=== PATIENT | female | born 2005 | race Hispanic/Latino ===

== ENCOUNTER 2023-12-17 15:19 | Emergency (ER) | payer OTHER, SELFPAY ==
--- NOTE | 2023-12-17 16:55 | ER ---
Nurse's Notes [facility] Name: Sofy Edwards Age: 18 yrs Sex: Female : 2005 Arrival Date: 12/17/2023 Time: 15:19 Bed 11 Private MD: Diagnosis: Acute tonsillitis, unspecified Presentation: 12/16 15:33 Chief complaint: Patient states: sore throat x 1 week ago. Coronavirus screen: At this aa5 time, the client does not indicate any symptoms associated with coronavirus-19. Ebola Screen: Patient denies travel to an Ebola-affected area in the 21 days before illness onset. Initial Sepsis Screen: Does the patient meet any 2 criteria? No. Patient's initial sepsis screen is negative. Does the patient have a suspected source of infection? No. Patient's initial sepsis screen is negative. Risk Assessment: Do you want to hurt yourself or someone else? Patient reports no desire to harm self or others. 15:33 Method Of Arrival: Ambulatory aa5 15:33 Acuity: ALMA 4 aa5 Historical: - Allergies: 15:32 No Known Allergies; aa5 - PMHx: 15:32 None; aa5 - PSHx: 15:32 None; aa5 - Immunization history:: Adult Immunizations unknown. - Infectious Disease History:: Denies. - Social history:: Smoking status: Reported history of juuling and/or vaping. Screenin:11 Abuse screen: Denies threats or abuse. Denies injuries from another. Nutritional ss screening: No deficits noted. Tuberculosis screening: Never had TB. Assessment: 17:11 General: Appears in no apparent distress. comfortable, Behavior is calm, cooperative. ss Neuro: Level of Consciousness is awake, alert, obeys commands, Oriented to person, place, time, situation. Respiratory: Airway is patent Respiratory effort is even, unlabored. Derm: Skin is intact, is healthy with good turgor, Skin is pink, warm \T\ dry. normal. Vital Signs: 15:33 Pulse 70; Resp 18 S; Temp 98.2(O); Pulse Ox 98% on R/A; Weight 90.72 kg (R); Height 5 aa5 ft. 4 in. (R); 15:33 Body Mass Index 34.33 (90.72 kg, 162.56 cm) aa5 ED Course: 15:24 Patient arrived in ED. ra3 15:32 Arm band placed on. aa5 15:33 Triage completed. aa5 15:49 Damien Humphreys FNP-C is [facility]. dr5 15:49 Jassi Chacon MD is Attending Physician. dr5 17:11 No provider procedures requiring assistance completed. Patient did not have IV access ss during this emergency room visit. Administered Medications: No medications were administered Medication: 17:11 VIS not applicable for this client. ss Outcome: 16:55 Discharge ordered by . dr5 17:11 Discharged to home ambulatory, ss 17:11 Condition: good 17:11 Discharge instructions given to patient, family, Instructed on discharge instructions, follow up and referral plans. medication usage, Demonstrated understanding of instructions, follow-up care, medications, 17:13 Patient left the ED. ss Signatures: Susanne Rodríguez, RN RN aa5 Loreta Gooden RN RN ss Graciela Donnelly ra3 Damien Humphreys FNP-C DEPLOYMENT SPECIALIST-Cdr5
--- NOTE | 2023-12-17 16:55 | EDPHYS ---
Physician Documentation [facility] Name: Sofy Edwards Age: 18 yrs Sex: Female : 2005 Arrival Date: 12/17/2023 Time: 15:19 Bed 11 Private MD: ED Physician Jassi Chacon HPI: 12/16 18:51 This 18 yrs old Female presents to ER via Ambulatory with complaints of Sore dr5 Throat. 18:52 This 18 yrs old Female presents to ER via Ambulatory with complaints of Sore dr5 Throat. 18:52 The patient presents with sore throat. The patient describes throat pain as burning, dr5 raw. Pt is a 18 year old with strep exposure, sore throat, exudate, and subjective fevers at home.. Historical: - Allergies: 15:32 No Known Allergies; aa5 - PMHx: 15:32 None; aa5 - PSHx: 15:32 None; aa5 - Immunization history:: Adult Immunizations unknown. - Infectious Disease History:: Denies. - Social history:: Smoking status: Reported history of juuling and/or vaping. ROS: 18:52 Constitutional: as per hpi dr5 Exam: 18:52 Constitutional: This is a well developed, well nourished patient who is awake, alert, dr5 and in no acute distress. Head/Face: Normocephalic, atraumatic. Neck: Trachea midline, no thyromegaly or masses palpated, and no cervical lymphadenopathy. Supple, full range of motion without nuchal rigidity, or vertebral point tenderness. No Meningismus. Cardiovascular: Regular rate and rhythm with a normal S1 and S2. Normal PMI, no JVD. No pulse deficits. Respiratory: Lungs have equal breath sounds bilaterally, clear to auscultation. No rales, rhonchi or wheezes noted. No increased work of breathing, no retractions or nasal flaring. Abdomen/GI: Soft, non-tender, non-distended 18:52 ENT: External ear(s): are unremarkable, Ear canal(s): are normal, TM's: are normal, Posterior pharynx: swelling, erythema, exudate, that is moderate, moderate to right tonsil, Vital Signs: 15:33 Pulse 70; Resp 18 S; Temp 98.2(O); Pulse Ox 98% on R/A; Weight 90.72 kg (R); Height 5 aa5 ft. 4 in. (R); 15:33 Body Mass Index 34.33 (90.72 kg, 162.56 cm) aa5 MDM: 15:49 Medical Screening Exam initiated dr5 18:52 Differential diagnosis: Allergic rhinitis, mo-esquivel virus, mononucleosis, dr5 peritonsillar abscess pharyngitis, tonsillitis, Strep Throat. Data reviewed: vital signs, nurses notes. Consideration of Admission/Observation Escalation of care including admission/observation considered. Considered admission if patient had FOAM CHARGER for IV abx vs I\T\D. Care significantly affected by the following Social Determinants of Health: Poor access to healthcare and/or lack of insurance, Poor access to transportation. Counseling: I had a detailed discussion with the patient and/or guardian regarding the historical points, exam findings, and any diagnostic results supporting the discharge/admit diagnosis, the need for outpatient follow up, for definitive care, a family practitioner, to return to the emergency department if symptoms worsen or persist or if there are any questions or concerns that arise at home. ED course: Strep swab ordered and sent to lab. Amoxicillin prescribed. Recommended throwing toothbrush away in 2-3 days. Alternate Tylenol / Motrin for pain. . Administered Medications: No medications were administered Disposition Summary: 12/17/23 16:55 Discharge Ordered Notes: Location: Home dr5 Condition: Stable dr5 Diagnosis - Acute tonsillitis, unspecified dr5 Followup: dr5 - With: Emergency Department - When: As needed - Reason: Worsening of condition Followup: dr5 - With: Private Physician - When: 1 - 2 days - Reason: Recheck today's complaints, Continuance of care, Re-evaluation by your physician Discharge Instructions: - Discharge Summary Sheet dr5 - Tonsillitis dr5 Forms: - Medication Reconciliation Form dr5 - Antibiotic Education dr5 - Patient Portal Instructions dr5 - Leadership Thank You Letter dr5 Prescriptions: - Amoxicillin 500 mg Oral capsule - take 1 capsule ORAL route 2 times per day for 10 days; 20 tablet; Refills: 0, dr5 Product Selection Permitted Signatures: Dispatcher [employer] Susanne Meza RN RN aa5 Damien Humphreys, TEENA-C POSTAL SERVICE CLERK-Cdr5
[2023-12-18 05:13] VITALS: TEMP 98.2; O2SAT 98
== END 2023-12-17 17:13 | disposition home or self-care (01) ==
LOC: ER 15:19
DX: J03.90 Acute tonsillitis, unspecified (principal)
CPT/HCPCS: 99282

== ENCOUNTER 2024-06-09 15:53 | Emergency (ER) | payer OTHER, SELFPAY ==
--- NOTE | 2024-06-09 16:17 | ER ---
Nurse's Notes [facility] Name: Sofy Edwards Age: 19 yrs Sex: Female : 2005 Arrival Date: 06/09/2024 Time: 15:53 Bed DX3 Private MD: Diagnosis: Otitis media, unspecified, right ear Presentation: 06/09 16:03 Chief complaint: Patient states: pain to right ear lobe. Denies injury. Coronavirus ld1 screen: At this time, the client does not indicate any symptoms associated with coronavirus-19. Ebola Screen: No symptoms or risks identified at this time. Initial Sepsis Screen: Does the patient meet any 2 criteria? No. Patient's initial sepsis screen is negative. Does the patient have a suspected source of infection? No. Patient's initial sepsis screen is negative. Risk Assessment: Do you want to hurt yourself or someone else? Patient reports no desire to harm self or others. Onset of symptoms was June 09, 2024 at 16:03. 16:03 Method Of Arrival: Ambulatory ld1 16:03 Acuity: ALMA 4 ld1 Triage Assessment: 16:03 General: Appears in no apparent distress. comfortable, Behavior is calm, cooperative, ld1 appropriate for age. Pain: Complains of pain in right ear Pain does not radiate. Pain currently is 6 out of 10 on a pain scale. Quality of pain is described as throbbing, Pain began suddenly, Is continuous. EENT: Reports pain in right ear. Neuro: Level of Consciousness is awake, alert, obeys commands, Oriented to person, place, time, situation. Cardiovascular: Capillary refill < 3 seconds Patient's skin is warm and dry. Respiratory: Airway is patent Respiratory effort is even, unlabored. GI: Abdomen is round non-distended. : No signs and/or symptoms were reported regarding the genitourinary system. Derm: No signs and/or symptoms reported regarding the dermatologic system. Musculoskeletal: No signs and/or symptoms reported regarding the musculoskeletal system. Historical: - Allergies: 16:03 No Known Allergies; ld1 - Home Meds: 16:03 None [Active]; ld1 - PMHx: 16:03 None; ld1 - PSHx: 16:03 None; ld1 - Immunization history:: Adult Immunizations up to date. - Infectious Disease History:: Denies. - Social history:: Smoking status: Patient denies any tobacco usage or history of. Vital Signs: 16:03 BP 137 / 82; Pulse 84; Resp 18; Temp 97.5(TE); Pulse Ox 97% on R/A; Weight 92.99 kg; ld1 Height 5 ft. 4 in. ; Pain 0/10; 16:03 Body Mass Index 35.19 (92.99 kg, 162.56 cm) ld1 16:03 Pain Scale: Adult ld1 ED Course: 15:57 Patient arrived in ED. al6 15:59 Emily Reynaga [facility]-C [facility]. sb4 15:59 Jassi Chacon MD is Attending Physician. sb4 16:03 Triage completed. ld1 16:03 Arm band placed on right wrist. ld1 Administered Medications: No medications were administered Outcome: 16:16 Discharge ordered by . sb4 16:21 Patient left the ED. Signatures: Malorie Hall RN RN Kylie Clark RN RN ld1 Emily Reynaga PA-C PA-C sb4 Marquita Kearns al6
--- NOTE | 2024-06-09 16:17 | EDPHYS ---
Physician Documentation [facility] Name: Sofy Edwards Age: 19 yrs Sex: Female : 2005 Arrival Date: 06/09/2024 Time: 15:53 Bed DX3 Private MD: ED Physician Jassi Chacon HPI: 06/09 16:57 This 19 yrs old Female presents to ER via Ambulatory with complaints of Ear sb4 Pain. 16:57 The patient presents with pain, that is acute. The complaints affect the right ear. sb4 Onset: The symptoms/episode began/occurred 2 day(s) ago. Patient reports pain in her right ear for a few days now. She states that she has been a little sick the past week with a stuffy nose. Additionally, reports pain in her right earlobe. She does have gauges there and thought that may be an issue. Reports a history of ear infections as a child, but not as an adult. Denies any fever. Historical: - Allergies: 16:03 No Known Allergies; ld1 - Home Meds: 16:03 None [Active]; ld1 - PMHx: 16:03 None; ld1 - PSHx: 16:03 None; ld1 - Immunization history:: Adult Immunizations up to date. - Infectious Disease History:: Denies. - Social history:: Smoking status: Patient denies any tobacco usage or history of. ROS: 16:57 Constitutional: Negative for fever, chills, and weight loss, sb4 16:57 ENT: Positive for ear pain, 16:57 All other systems are negative, Exam: 16:57 Constitutional: This is a well developed, well nourished patient who is awake, alert, sb4 and in no acute distress. Head/Face: Normocephalic, atraumatic. Eyes: Extra-ocular motions intact. Periorbital areas with no swelling, redness, or edema. Respiratory: No increased work of breathing, no retractions or nasal flaring. 16:57 ENT: External ear(s): erythema, that is moderate, on the right ear lobe, TM's: decreased mobility, on the right, erythema, that is moderate, on the right, Examination of the other ear shows no obvious abnormality, Vital Signs: 16:03 BP 137 / 82; Pulse 84; Resp 18; Temp 97.5(TE); Pulse Ox 97% on R/A; Weight 92.99 kg; ld1 Height 5 ft. 4 in. ; Pain 0/10; 16:03 Body Mass Index 35.19 (92.99 kg, 162.56 cm) ld1 16:03 Pain Scale: Adult ld1 MDM: 16:11 Medical Screening Exam initiated sb4 16:57 Differential diagnosis: otitis media, otitis externa, foreign body, acute otalgia, sb4 cerumen impaction. Data reviewed: vital signs, nurses notes, and as a result, I will discharge patient. Counseling: I had a detailed discussion with the patient and/or guardian regarding the historical points, exam findings, and any diagnostic results supporting the discharge/admit diagnosis, the need for outpatient follow up, for definitive care, to return to the emergency department if symptoms worsen or persist or if there are any questions or concerns that arise at home. Administered Medications: No medications were administered Disposition: 06/10 12:57 Co-signature as Attending Physician, Jassi Chacon MD I agree with the assessment and maria d plan of care. Disposition Summary: 06/09/24 16:16 Discharge Ordered Notes: Location: Home sb4 Problem: new sb4 Symptoms: are unchanged sb4 Condition: Stable sb4 Diagnosis - Otitis media, unspecified, right ear sb4 Followup: sb4 - With: Private Physician - When: 1 week - Reason: Recheck today's complaints, Re-evaluation by your physician Discharge Instructions: - Discharge Summary Sheet sb4 - Otitis Media, Adult sb4 Forms: - Antibiotic Education sb4 - Patient Portal Instructions sb4 - Leadership Thank You Letter sb4 Prescriptions: - Amoxicillin 875 mg Oral Tablet - take 1 tablet ORAL route every 12 hours for 10 days; 20 tablet; Refills: 0, sb4 Product Selection Permitted Signatures: Jassi Chaocn MD MD cha Sims, Lauren, BLAKE RN ld1 Emily Reynaga PA-C PA-C sb4
[2024-06-09 16:28] VITALS: BP 137/82; TEMP 97.5; O2SAT 97
== END 2024-06-09 16:21 | disposition home or self-care (01) ==
LOC: ER 15:53
DX: H66.91 Otitis media, unspecified, right ear (principal)
CPT/HCPCS: 99281